=== PATIENT | female | born 1975 | race Caucasian/White ===

== ENCOUNTER 2018-07-26 23:54 | Emergency (ER) | payer BC ==
--- NOTE | 2018-07-27 00:12 | C.PDOC ---
History Of Present Illness Presents to the ED complaining of right sided flank pain that radiates to the groin that began early yesterday morning. The patient states she went to see her CHAIR PAD MAKER earlier today but she had to go to the urgent care instead because her doctor was not in. After the urgent care did a UA and ultrasound, they told the patient she may have kidney stones. The patient then went to see her CHAIR PAD MAKER, Dr. Nathan, who gave her Tylenol with codeine and advised her to come to the ED if her pain worsens, prompting ED visit. She denies any fever, chills, nausea or vomiting. Time Seen by Provider: 07/27/18 00:12 Chief Complaint (Nursing): Female Genitourinary History Per: Patient History/Exam Limitations: no limitations Onset/Duration Of Symptoms: Days Current Symptoms Are (Timing): Still Present Context: Other Severity: Moderate Pain Scale Rating Of: 4 Location Of Pain/Discomfort: Other (Right sided flank pain ) Radiation Of Pain To:: Other (Groin) Quality Of Discomfort: Sharp, Cramping, Stabbing, "Pain" Associated Symptoms: denies: Fever, Chills, Nausea, Vomiting Exacerbating Factors: None Alleviating Factors: None Last Bowel Movement: Yesterday Recent travel outside of the [place]: No Additional History Per: Family Abnormal Vaginal Bleeding: No Past Medical History Reviewed: Historical Data, Nursing Documentation, Vital Signs Vital Signs: Last Vital Signs Temp 99 F 07/27/18 00:02 Pulse 59 L 07/27/18 00:02 Resp 20 07/27/18 00:02 BP 159/78 H 07/27/18 00:02 Pulse Ox 100 07/27/18 00:02 - Medical History PMH: Hypercholesterolemia, Hypothyroidism Surgical History: Appendectomy Family History: States: Unknown Family Hx - Social History Hx Alcohol Use: No Hx Substance Use: No Review Of Systems Constitutional: Negative for: Fever, Chills Gastrointestinal: Positive for: Other (right-sided flank pain radiating to groin). Negative for: Nausea, Vomiting Genitourinary: Negative for: Dysuria Musculoskeletal: Positive for: Back Pain Skin: Negative for: Rash Neurological: Negative for: Weakness Psych: Negative for: Anxiety Physical Exam - Physical Exam Appears: Non-toxic, No Acute Distress Skin: Warm, Dry Head: Normacephalic Oral Mucosa: Moist Neck: Trachea Midline, Supple Chest: Symmetrical Cardiovascular: Rhythm Regular Respiratory: No Rales, No Rhonchi, No Wheezing Gastrointestinal/Abdominal: Soft, No Tenderness, No Distention, No Guarding, Other (right-sided flank pain ) Back: CVA Tenderness Extremity: Normal ROM Extremity: Bilateral: Normal Color And Temperature Pulses: Left Dorsalis Pedis: Normal, Right Dorsalis Pedis: Normal Neurological/Psych: Oriented x3 Gait: Steady ED Course And Treatment - Laboratory Results Result Diagrams: 07/27/18 01:04 07/27/18 01:04 O2 Sat by Pulse Oximetry: 100 (RA) Pulse Ox Interpretation: Normal Reevaluation Time: 02:55 Reassessment Condition: Improved Disposition Counseled Patient/Family Regarding: Studies Performed, Diagnosis, Need For Followup, Rx Given - Disposition Referrals: Jackelyn Nathan MD [Staff Provider] - Disposition: HOME/ ROUTINE Disposition Time: 00:12 Condition: FAIR Additional Instructions: Please return if symptoms recur Prescriptions: Ondansetron ODT [Zofran ODT] 1 odt PO BID PRN #6 odt PRN Reason: Nausea/Vomiting traMADol [Ultram] 50 mg PO QID PRN #20 tab PRN Reason: Pain, Severe (8-10) Instructions: Kidney Stones (DC), Renal Colic (DC), Flank Pain (DC) Forms: [facility] ([place]), Work/School/Gym Excuse - Clinical Impression Clinical Impression: Renal colic on right side, Kidney stone on right side - PA / RETAIL SUPPORT MANAGER / Resident Statement MD/DO has reviewed & agrees with the documentation as recorded. - Scribe Statement The provider has reviewed the documentation as recorded by the Scribe (Mary Montelongo) Provider Attestation: All medical record entries made by the Scribe were at my direction and personally dictated by me. I have reviewed the chart and agree that the record accurately reflects my personal performance of the history, physical exam, medical decision making, and the department course for this patient. I have also personally directed, reviewed, and agree with the discharge instructions and disposition.
[2018-07-27] MEDS ORDERED: Sodium Chloride 0.9% 1,000 ML IV ONE (00:45)
[2018-07-27] MEDS ORDERED: Sodium Chloride 0.9% 1,000 ML ONE (01:04)
[2018-07-27 01:11] LABS: HCG,QUALITATIVE URINE NEGATIVE (NEGATIVE)
[2018-07-27 01:14] LABS: BASO % 0.3 % (0.0-2.0); EOS # 0.1 K/uL (0.0-0.7); EOS % 1.2 % (0.0-4.0); HEMOGLOBIN 12.7 g/dL (11.0-16.0); LYMPH # 2.5 K/uL (1.0-4.3); LYMPH % 24.1 % (20.0-40.0); MEAN CELL VOLUME 84.1 fL (81.0-99.0); MEAN CORPUSCULAR HEMOGLOBIN 27.3 pg (27.0-31.0); MEAN CORPUSCULAR HGB CONC 32.4 g/dL (33.0-37.0); MEAN PLATELET VOLUME 9.8 fL (7.2-11.7); MONO # 0.5 K/uL (0.0-0.8); NEUT % 69.4 % (50.0-75.0); RBC 4.66 Mil/uL (3.80-5.20); RED CELL DISTRIBUTION WIDTH 14.7 % (11.5-14.5); WHITE BLOOD COUNT 10.2 K/uL (4.8-10.8)
[2018-07-27 01:16] LABS: SQUAMOUS EPITHIAL 13 /hpf (0-5); URINE BACTERIA RARE (<OCC); URINE BILIRUBIN NEGATIVE (NEGATIVE); URINE BLOOD 3+ (NEGATIVE); URINE CLARITY Hazy (Clear); URINE COLOR Yellow (YELLOW); URINE GLUCOSE (UA) NORMAL (Normal); URINE LEUKOCYTE ESTERASE 3+ Leu/uL (Negative); URINE PROTEIN NEGATIVE (NEGATIVE); URINE UROBILINOGEN NORMAL mg/dL (0.2-1.0)
[2018-07-27] MEDS ORDERED: Piperacillin/Tazobact 3.375 gm 100 ML IVPB STA (01:23)
[2018-07-27 01:27] LABS: ALB/GLOB RATIO 1.4 (1.0-2.1); ALBUMIN 4.5 g/dL (3.5-5.0); ALT/SGPT 43 U/L (9-52); AST/SGOT 25 U/L (14-36); BLOOD UREA NITROGEN 9 mg/dL (7-17); CALCIUM 9.2 mg/dl (8.6-10.4); GFR NON-AFRICAN AMERICAN > 60; LIPASE 44 U/L (23-300)
[2018-07-27] MEDS ORDERED: Piperacillin/Tazobact 3.375 gm 100 ML IVPB ONE (01:41)
[2018-07-27 05:10] VITALS: BP 110/72; PULSE 60; RESP 14; TEMP 98.3; O2SAT 98
--- NOTE | 2018-07-27 07:56 | CT ---
Date of service: 07/27/2018 PROCEDURE: CT Abdomen and Pelvis without intravenous contrast HISTORY: right flank pain, hematuria COMPARISON: None. TECHNIQUE: Multiple contiguous axial images were performed through the abdomen and pelvis without the use of intravenous contrast. Subsequently, sagittal and coronal reformatted images were obtained. Radiation dose: Total exam DLP = 681 mGy-cm. This CT exam was performed using one or more of the following dose reduction techniques: Automated exposure control, adjustment of the mA and/or kV according to patient size, and/or use of iterative reconstruction technique. FINDINGS: LOWER THORAX: Unremarkable. LIVER: Prominent liver measuring up to 18 centimeters in length. Diffuse hepatic hypoattenuation compatible with fatty infiltration. GALLBLADDER AND BILE DUCTS: Unremarkable. PANCREAS: Unremarkable. No gross lesion or ductal dilatation. SPLEEN: Unremarkable. ADRENALS: Unremarkable. No mass. KIDNEYS AND URETERS: 4 millimeter calculus noted in the proximal right ureter producing right hydroureteronephrosis. Perinephric fat stranding. Additional 2 millimeter calculus in the midpole of the right kidney. VASCULATURE: Unremarkable. No aortic aneurysm. BOWEL: Thick-walled fluid filled duodenum and loops of jejunum as well as ileum compatible with enteritis. Infectious and inflammatory etiologies are considered. Consider consultation with GI service and follow-up with upper endoscopy and colonoscopy. APPENDIX: No findings to suggest acute appendicitis. Surgical clips seen within the right lower hemipelvis. Clinical correlation. PERITONEUM: Small amount of free fluid within the posterior pelvic cul-de-sac. LYMPH NODES: Unremarkable. No enlarged lymph nodes. BLADDER: Unremarkable. REPRODUCTIVE: Unremarkable. BONES: Degenerative changes in the spine. OTHER FINDINGS: None. IMPRESSION: 4 millimeter calculus noted in the proximal right ureter producing mild right hydroureteronephrosis. Clinical correlation. Additional punctate 2 millimeter calculus in the mid to lower pole of the right kidney. Prominent fatty liver. Small amount of free fluid in the posterior pelvic cul-de-sac. Additional findings as above. These findings were preliminarily reported at 2:44 a.m. on 07/27/[address] Rayshawn Sharif from [facility].
== END 2018-07-27 03:55 | disposition home or self-care (01) ==
LOC: C.ER 23:54
DX: N13.2 Hydronephrosis with renal and ureteral calculous obstruction (principal)
CPT/HCPCS: 74176; 80053; 81001; 83690; 84703; 85025; 85610; 85730; 96361; 96365; 96375; 99285; J1885; J2543; J7030